=== PATIENT | male | born 2005 | race Caucasian/White ===

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

== ENCOUNTER 2024-10-31 07:01 | Day surgery (SDC) | payer OTHER ==
[~2024-10-31] VITALS: Ht 157.5 cm; Wt 43.1 kg
[2024-10-31] MEDS ORDERED: LR 1,000 ML IV SCH (07:45)
[2024-10-31] MEDS ORDERED: ONDANSETRON 4MG 2ML VIAL As Ordered ONE (07:51)
[2024-10-31] MEDS ORDERED: propofoL 200 MG/20 ML VIAL As Ordered ONE (07:51)
[2024-10-31] MEDS ORDERED: ROCURONIUM BROMIDE 50MG/5ML VIAL As Ordered ONE (07:51)
[2024-10-31] MEDS ORDERED: SUGAMMADEX SODIUM 500 MG/5 ML VIAL (BRIDION) As Ordered ONE (07:51)
[2024-10-31] MEDS ORDERED: LIDOCAINE 2% 100MG/5ML SDV (FOR ANES.) As Ordered ONE (07:51)
[2024-10-31] MEDS ORDERED: MIDAZOLAM INJ 2MG/2ML VIAL As Ordered ONE (08:09)
[2024-10-31] MEDS ORDERED: fentaNYL 100 MCG/2 ML INJECTION As Ordered ONE (08:09)
[2024-10-31] MEDS: OXYMETAZOLINE 0.05% NASAL SPRAY (AFRIN) As Ordered ONE (08:39)
[2024-10-31] MEDS: CLINDAMYCIN 900 MG in IV 1 EA IV ONE (08:58)
[2024-10-31] MEDS: CHLORHEXIDINE GLUCONATE 0.12 % 15ML UDC (PERIDEX ORAL RINSE) As Ordered ONE (09:05)
[2024-10-31] MEDS ORDERED: ACETAMINOPHEN 1000MG/100ML IV BAG As Ordered ONE (09:12)
[2024-10-31] MEDS: LIDOCAINE 2% W/ EPINEPHRINE 1.7 ML DENTAL INJ As Ordered ONE (10:00)
[2024-10-31] MEDS: BUPivacaine LIPOSOME/PF 266MG 20ML VIAL (13.3MG/ML)(EXPAREL) As Ordered ONE (10:11)
[2024-10-31] MEDS ORDERED: fentaNYL 100 MCG/2 ML INJECTION IV PRN (10:20)
[2024-10-31] MEDS ORDERED: oxyCODONE 5MG TAB PO PRN (10:20)
[2024-10-31] MEDS ORDERED: ONDANSETRON 4MG 2ML VIAL IV PRN (10:20)
[2024-10-31 11:25] VITALS: BP 142/79; TEMP 97.3; O2SAT 98
== END 2024-10-31 12:10 | disposition home or self-care (01) ==
LOC: M SDC 07:01
PROVIDERS: ATTEND Dentist
DX: K02.9 Dental caries, unspecified (principal); Z88.0 Allergy status to penicillin; F17.210 Nicotine dependence, cigarettes, uncomplicated
CPT/HCPCS: 88300; D7140; D7210; J0131; J0666; J0737; J1100; J2250; J2405; J3010